=== PATIENT | male | born 1980 | race Caucasian/White ===

== ENCOUNTER 2019-01-11 15:07 | Emergency (ER) | payer SELFPAY | END 2019-01-11 15:49 | disposition home or self-care (01) | LOC: MADERS 15:07 | DX: H92.02 Otalgia, left ear (principal); F17.210 Nicotine dependence, cigarettes, uncomplicated | CPT/HCPCS: 99282 ==

== ENCOUNTER 2019-02-24 11:39 | Emergency (ER) | payer SELFPAY ==
[2019-02-24] MEDS ORDERED: Lidocaine 1% 20 ML MDV ONE (12:15)
[2019-02-24] MEDS ORDERED: Sulfameth/Trimethoprim DS 800-160mg TAB ONE (12:15)
== END 2019-02-24 12:45 | disposition home or self-care (01) ==
LOC: MADERS 11:39
DX: L02.415 Cutaneous abscess of right lower limb (principal); F17.210 Nicotine dependence, cigarettes, uncomplicated
CPT/HCPCS: 10060; J2001